=== PATIENT | female | born 1995 | race Hispanic/Latino ===

== ENCOUNTER 2019-12-05 15:19 | Emergency (ER) | payer SELFPAY ==
--- NOTE | 2019-12-05 15:36 | ED_ITS ---
HPI - General Adult General Chief complaint: Eye Problems Stated complaint: vision problems Time Seen by Provider: 12/05/19 15:33 History of Present Illness HPI narrative: Patient is a 24 YO otherwise healthy female who comes to the ED today with blurry vision and eye pain. She was working on a car 2 weeks ago when she got some antifreeze in her eyes and ever since then she has been having blurry vision and eye irritation and eye pain. Eyelids have been matted shut in the mornings but no other discharge. No blind spots in her vision. Has not sough medical care until today. Related Data Allergies Allergy/AdvReac Type Severity Reaction Status Date / Time No Known Allergies Allergy Verified 12/05/19 16:31 Review of Systems Review of Systems: All systems reviewed & are unremarkable except as noted in HPI and below PMFSH Social History Social History Gender identity (if verbalized by the patient): Female Exam Const: General: no acute distress Orientation/consciousness: patient oriented x3 HENMT: Head: normal to inspection Eyes: General: appearance normal, both eyes and all related structures Visual Davis: normal visual davis by confrontation Periorbital: periorbital findings normal Eyelids: eyelids normal Conjunctivae: conjunctivae normal Sclera: sclerae normal Cornea: fluorescein used (tiny corneal abrasion at distal portion of cornea) Pupils: Equal, round and reactive pupils present EOM: EOMs intact bilaterally Direct Ophthalmoscopy: normal light reflex, no photophobia, no papilledema, fundi normal bilaterally and anterior chamber normal Other: Visual acuity: 20/40 R eye, 20/40 L eye, 20/25 bilaterally - uncorrected Chest: Chest palpation & inspection: normal inspection of the chest Resp: Effort & Inspection: normal respiratory effort Auscultation: clear to auscultation bilaterally Cardio: Rate: regular rate Rhythm: regular rhythm GI: Inspection: non-distended GI Palp: Yes Soft to palpation and No Tenderness to palpation present (GI) Skin: General skin exam: normal color Neuro: General: patient oriented x3 and moves all extremities Extrem: General: normal to inspection Course Course Emergency Course: 1700 Found to have tiny corneal abrasion in left eye. That was the only eye stained per patients request since it was the most symptomatic. Agreed on plan for DC with eye drops and f/u with optho next week without fail, patient agreeable. Discharge Plan Discharge Clinical Impression: Blurred vision, Chemical burn of eye Corneal abrasion Qualifiers: Encounter type: initial encounter Laterality: left Qualified Code(s): S05.02XA - Injury of conjunctiva and corneal abrasion without foreign body, left eye, ini tial encounter Patient Disposition: Home, Self-Care Condition: Stable Instructions: Antibiotic Form, Corneal Abrasion (DC) Additional Instructions: Follow up with opthomology next week without fail at [facility] AT [address] [place] [address] in [place], [place] [phone] Prescriptions: New erythromycin 5 mg/gram (0.5 %) ointment 1 applic ophthalmic (eye) Q6H 7 Days Qty: 1 RF: 0 Follow-up/Referrals: PHYSICIAN,COMMERCIAL ACCOUNT EXECUTIVE [Primary Care Provider] - Time of Disposition: 17:11
[2019-12-05 16:26] VITALS: BP 154/97; PULSE 94; RESP 16; TEMP 37; O2SAT 99
== END 2019-12-05 17:33 | disposition home or self-care (01) ==
DX: T51.8X1A Toxic effect of other alcohols, accidental (unintentional), initial encounter (principal); S05.02XA Injury of conjunctiva and corneal abrasion without foreign body, left eye, initial encounter; T26.92XA Corrosion of left eye and adnexa, part unspecified, initial encounter; H53.8 Other visual disturbances; X58.XXXA Exposure to other specified factors, initial encounter
CPT/HCPCS: 99283; A9270